=== PATIENT | male | born 1970 | race American Indian/Alaskan Native ===

== ENCOUNTER 2018-06-28 20:39 | Emergency (ER) | payer SELFPAY ==
--- NOTE | 2018-06-28 21:27 | Emergency Department Report ---
Blank Doc - Documentation Documentation: pt states he slipped and fell at work c/o right ankle pain and right heel pain never injured before no PMHx no daily meds no allergies to meds non smoker occ drinker no drug use
--- NOTE | 2018-06-28 22:27 | XRay Report ---
PROCEDURE: XR ANKLE 3+V RT TECHNIQUE: Right ankle radiographs, AP, lateral, and oblique views. HISTORY: slip and fall, right ankle pain COMPARISONS: None . FINDINGS: Fracture (s) and/or Dislocation(s): None . Alignment: Normal . Joint space(s): Normal . Soft tissues: Normal . Bone mineralization: Normal . Foreign bodies: None . Calcaneal spurring: None . IMPRESSION: Normal Examination . This document is electronically signed by Jose Antonio Yung MD., Jun 28 2018 10:25:30 PM ET
--- NOTE | 2018-06-28 22:28 | XRay Report ---
PROCEDURE: XR FOOT 3+V RT TECHNIQUE: Right foot radiographs, AP, lateral, and oblique views. HISTORY: slip and fall, right heel pain COMPARISONS: None . FINDINGS: Fracture (s) and/or Dislocation(s): None . Alignment: Normal . Joint space(s): Normal . Soft tissues: Normal . Bone mineralization: Normal . Foreign bodies: None . Calcaneal spurring: None . IMPRESSION: Normal Examination . This document is electronically signed by Jose Antonio Yung MD., Jun 28 2018 10:26:07 PM ET
[2018-06-29] MEDS ORDERED: IBUPROFEN PO ONE (00:02)
--- NOTE | 2018-06-29 00:07 | Emergency Department Report ---
ED Extremity Problem HPI - General Chief complaint: Extremity Injury, Lower Stated complaint: RIGHT LEG AND ANKLE PAIN Time Seen by Provider: 06/28/18 21:25 Source: patient Mode of arrival: Ambulatory Limitations: No Limitations - History of Present Illness Initial comments: Patient is a 48-year-old [place] male who suffered a slip and fall earlier tod ay while at work. 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 The patient slipped and fell. Patient has pain in the right foot and right ankle mostly at the lateral malleolus where he has swelling. Patient states pain is 7 out of 10 in severity and is aching and throbbing. Patient states he believes he may have hit his head but he denies any loss consciousness and says he has no headache at this time. Consistency: constant Improves with: immobilization Worsens with: weight bearing, walking - Related Data Previous Rx's Medication Instructions Recorded Last Taken Type Ketorolac [Toradol] 10 mg PO Q6H PRN #12 tablet 06/29/18 Unknown Rx traMADol [Ultram] 50 mg PO Q6HR PRN #12 tablet 06/29/18 Unknown Rx Allergies Allergy/AdvReac Type Severity Reaction Status Date / Time No Known Allergies Allergy Unverified 06/28/18 20:49 ED Review of Systems ROS: Stated complaint: RIGHT LEG AND ANKLE PAIN Other details as noted in HPI Comment: All other systems reviewed and negative ED Past Medical Hx - Past Medical History Previous Medical History?: No - Surgical History Past Surgical History?: No - Social History Smoking Status: Former Smoker Substance Use Type: Alcohol - Medications Home Medications: Home Medications Medication Instructions Recorded Confirmed Last Taken Type Ketorolac [Toradol] 10 mg PO Q6H PRN #12 tablet 06/29/18 Unknown Rx traMADol [Ultram] 50 mg PO Q6HR PRN #12 tablet 06/29/18 Unknown Rx ED Physical Exam - General Limitations: No Limitations General appearance: alert, in no apparent distress - Head Head exam: Present: atraumatic, normocephalic - Eye Eye exam: Present: normal appearance - ENT ENT exam: Present: mucous membranes moist - Neck Neck exam: Present: normal inspection - Respiratory Respiratory exam: Absent: normal lung sounds bilaterally, respiratory distress - GI/Abdominal GI/Abdominal exam: Present: soft. Absent: distended - Rectal Rectal exam: Present: deferred - Extremities Exam Extremities exam: Present: normal inspection - Expanded Lower Extremity Exam Right Ankle exam: Present: full ROM, tenderness (lateral malleolus), swelling. Absent: normal inspection, laceration, ecchymosis, deformity, crepidus, dislocation, erythema - Back Exam Back exam: Present: normal inspection - Neurological Exam Neurological exam: Present: alert, oriented X3 - Psychiatric Psychiatric exam: Present: normal affect, normal mood - Skin Skin exam: Present: warm, dry, intact, normal color. Absent: rash ED Course Vital Signs 06/28/18 06/28/18 20:46 21:25 Temperature 97.9 F 97.9 F Pulse Rate 95 H 95 H Respiratory 16 16 Rate Blood Pressure 119/82 119/82 O2 Sat by Pulse 97 97 Oximetry ED Medical Decision Making - Radiology Data [facility] [address] [place] [address] XRay Report Signed Patient: NAVI LONG MR#: [id number] : 1970 Acct:[id number] Age/Sex: 48 / M ADM Date: 06/28/18 Loc: ED Attending Dr: Ordering Physician: CARMEN ULRICH Date of Service: 06/28/18 Procedure(s): XR ankle 3+V RT Accession Number(s): [id number] cc: CARMEN ULRICH Fluoro Time In Minutes: PROCEDURE: XR ANKLE 3+V RT TECHNIQUE: Right ankle radiographs, AP, lateral, and oblique views. HISTORY: slip and fall, right ankle pain COMPARISONS: None . FINDINGS: Fracture (s) and/or Dislocation(s): None . Alignment: Normal . Joint space(s): Normal . Soft tissues: Normal . Bone mineralization: Normal . Foreign bodies: None . Calcaneal spurring: None . IMPRESSION: Normal Examination . This document is electronically signed by Jose Antonio Yung MD., Jun 28 2018 10:25:30 PM ET Transcribed By: [facility] [place] Dictated By: JOSE ANTONIO YUNG Electronically Authenticated By: JOSE ANTONIO YUNG Signed Date/Time: 06/28/18 1647 - Medical Decision Making Patient suffered a fall while at work and he has pain and swelling to the lateral malleolus of his right lower extremity. Patient placed in an air cast and the patient will be discharged home with follow-up with orthopedics as needed. Patient given rice instructions. Critical care attestation.: If time is entered above; I have spent that time in minutes in the direct care of this critically ill patient, excluding procedure time. ED Disposition Clinical Impression: Ankle sprain Qualifiers: Encounter type: initial encounter Involved ligament of ankle: unspecified ligament Laterality: right Qualified Code(s): S93.401A - Sprain of unspecified ligament of right ankle, initial encounter Disposition: TO HOME OR SELFCARE Is pt being admited?: No Does the pt Need Aspirin: No Condition: Stable Instructions: Ankle Sprain (ED), Ankle Stirrup Splint (ED), RICE Therapy (ED) Referrals: REX FERRO MD [Staff Physician] - 3-5 Days Time of Disposition: 00:06
[2018-06-29 01:09] VITALS: BP 121/84
== END 2018-06-29 00:50 | disposition home or self-care (01) ==
LOC: ED 20:39
DX: S93.401A Sprain of unspecified ligament of right ankle, initial encounter (principal); Z87.891 Personal history of nicotine dependence; W01.0XXA Fall on same level from slipping, tripping and stumbling without subsequent striking against object, initial encounter; Y93.01 Activity, walking, marching and hiking; Y92.511 Restaurant or cafe as the place of occurrence of the external cause; Y99.0 Civilian activity done for income or pay

== ENCOUNTER 2020-04-02 01:47 | Emergency (ER) | payer SELFPAY ==
[2020-04-02] MEDS ORDERED: IPRATROPIUM/ALBUTEROL SULFATE 3 ML AMPUL.NEB IH ONE (03:09)
[2020-04-02] MEDS ORDERED: ALBUTEROL 2.5 MG/3 ML NEBU IH ONE (03:09)
[2020-04-02 03:26] VITALS: BP 148/84
--- NOTE | 2020-04-02 03:42 | Emergency Department Report ---
- General Chief Complaint: Upper Respiratory Infection Stated Complaint: SOB Source: patient Mode of arrival: Ambulatory Limitations: No Limitations - History of Present Illness Initial Comments: Patient is a 50-year-old -Chinese male with no past medical history of except morbid obesity who presents to the ED with complaint of acute onset persistent nasal and sinus congestion, frontal sinus pressure, sore throat, persistent dry cough with wheezing and shortness of breath for the last 3 weeks. Patient states that he has been taking [id number] medications with no relief. Patient states that about 2 hours prior to arrival to the ED via EMS, his cough and wheezing got worse and decided come to the ED for evaluation. Patient states that he was treated in route to the ED with Decadron and albuterol inhaler. Patient denies dizziness, syncope, fever, chills, chest pain, shortness of breath, abdominal pain, nausea, vomiting, sore throat, back pain, neck pain, change in vision or palpitations. MD Complaint: cough, sore throat, rhinorrhea, nasal congestion, sinus pain -: Sudden, week(s) (3) Severity: severe Severity scale (0 -10): 7 Quality: sharp, aching Consistency: constant Improves With: nothing Worsens With: nothing Associated Symptoms: denies other symptoms, myalgias, headache, rhinorrhea, nasal congestion, sore throat, cough. denies: fever, chills, diaphoresis, stiff neck, chest pain, shortness of breath, abdominal pain, nausea, vomiting, diarrhea, dysuria, rash, confusion, right sweats, weight loss, epistaxis, hoarseness, ear pain Treatments Prior to Arrival: none - Related Data Previous Rx's Medication Instructions Recorded Last Taken Type Ketorolac [Toradol] 10 mg PO Q6H PRN #12 tablet 06/29/18 Unknown Rx traMADoL [Ultram] 50 mg PO Q6HR PRN #12 tablet 06/29/18 Unknown Rx Albuterol Sulfate [Proventil Hfa] 1 - 2 puff IH Q6H PRN #1 hfa.aer.ad 04/02/20 Unknown Rx Benzonatate [Tessalon Perles] 100 mg PO Q8HR #30 capsule 04/02/20 Unknown Rx Cetirizine HCl [Zyrtec 10mg tab] 10 mg PO DAILY #30 tablet 04/02/20 Unknown Rx Doxycycline Hyclate 100 mg PO Q12H #20 tablet. 04/02/20 Unknown Rx Ibuprofen [Motrin] 800 mg PO Q8HR PRN #30 tablet 04/02/20 Unknown Rx methylPREDNISolone [Medrol 4MG 4 mg PO DAILY #21 tab.ds.pk 04/02/20 Unknown Rx DOSEPAK (21 tabs)] Allergies Allergy/AdvReac Type Severity Reaction Status Date / Time No Known Allergies Allergy Unverified 06/28/18 20:49 ED Review of Systems ROS: Stated complaint: SOB Other details as noted in HPI Constitutional: denies: chills, fever Eyes: denies: eye pain, eye discharge, vision change ENT: throat pain, congestion. denies: ear pain Respiratory: cough, shortness of breath, wheezing Cardiovascular: denies: chest pain, palpitations, dyspnea on exertion Endocrine: no symptoms reported Gastrointestinal: denies: abdominal pain, nausea, vomiting, diarrhea, hematemesis, melena Genitourinary: denies: urgency, dysuria Musculoskeletal: denies: back pain, joint swelling, arthralgia Skin: denies: rash, lesions Neurological: headache. denies: weakness, paresthesias Psychiatric: denies: anxiety, depression Hematological/Lymphatic: denies: easy bleeding, easy bruising ED Past Medical Hx - Past Medical History Previous Medical History?: Yes Hx Hypertension: Yes - Surgical History Past Surgical History?: No - Social History Smoking Status: Never Smoker Substance Use Type: None - Medications Home Medications: Home Medications Medication Instructions Recorded Confirmed Last Taken Type Ketorolac [Toradol] 10 mg PO Q6H PRN #12 tablet 06/29/18 Unknown Rx traMADoL [Ultram] 50 mg PO Q6HR PRN #12 tablet 06/29/18 Unknown Rx Albuterol Sulfate [Proventil Hfa] 1 - 2 puff IH Q6H PRN #1 hfa.aer.ad 04/02/20 Unknown Rx Benzonatate [Tessalon Perles] 100 mg PO Q8HR #30 capsule 04/02/20 Unknown Rx Cetirizine HCl [Zyrtec 10mg tab] 10 mg PO DAILY #30 tablet 04/02/20 Unknown Rx Doxycycline Hyclate 100 mg PO Q12H #20 tablet. 04/02/20 Unknown Rx Ibuprofen [Motrin] 800 mg PO Q8HR PRN #30 tablet 04/02/20 Unknown Rx methylPREDNISolone [Medrol 4MG 4 mg PO DAILY #21 tab.ds.pk 04/02/20 Unknown Rx DOSEPAK (21 tabs)] ED Physical Exam - General Limitations: No Limitations General appearance: alert, in no apparent distress - Head Head exam: Present: atraumatic, normocephalic, normal inspection - Eye Eye exam: Present: normal appearance, PERRL, EOMI Pupils: Present: normal accommodation - ENT ENT exam: Present: mucous membranes moist, TM's normal bilaterally, normal external ear exam, other (Grossly congested nasal passages; erythematous oropharynx with mild tonsillar swelling, no peritonsillar abscess and uvula is midline) - Neck Neck exam: Present: normal inspection, full ROM, lymphadenopathy (Anterior cervical lymphadenopathy) - Respiratory Respiratory exam: Present: wheezes (Mildly diffuse coarse wheezes throughout). Absent: normal lung sounds bilaterally, respiratory distress, rales, rhonchi, chest wall tenderness, accessory muscle use, decreased breath sounds, prolonged expiratory - Cardiovascular Cardiovascular Exam: Present: regular rate, normal rhythm, normal heart sounds. Absent: systolic murmur, diastolic murmur, rubs, gallop - GI/Abdominal GI/Abdominal exam: Present: soft, normal bowel sounds. Absent: tenderness, guarding, rebound, hyperactive bowel sounds, hypoactive bowel sounds, organomegaly - Extremities Exam Extremities exam: Present: normal inspection, full ROM, normal capillary refill - Back Exam Back exam: Present: normal inspection, full ROM. Absent: tenderness, CVA tenderness (R), CVA tenderness (L), muscle spasm, paraspinal tenderness, vertebral tenderness - Neurological Exam Neurological exam: Present: alert, oriented X3, CN II-XII intact, normal gait, r eflexes normal - Psychiatric Psychiatric exam: Present: normal affect, normal mood - Skin Skin exam: Present: warm, dry, intact, normal color ED Course Vital Signs 04/02/20 04/02/20 03:00 03:26 Temperature 98.5 F Pulse Rate 84 Respiratory 20 Rate Blood Pressure 148/84 O2 Sat by Pulse 94 Oximetry ED Medical Decision Making - Radiology Data Radiology results: image reviewed Chest x-ray shows no acute cardiopulmonary abnormalities or pneumonitis - Medical Decision Making This is a 50-year-old -Chinese male with no past medical history of except morbid obesity who presents to the ED with complaint of acute onset persistent nasal and sinus congestion, frontal sinus pressure, sore throat, persistent dry cough with wheezing and shortness of breath for the last 3 weeks. Patient states that he has been taking [id number] medications with no relief. Patient states that about 2 hours prior to arrival to the ED via EMS, his cough and wheezing got worse and decided come to the ED for evaluation. Patient states that he was treated in route to the ED with Decadron and albuterol inhaler. In the ED, patient is alert and oriented x3 and is not in distress. Patient was treated in the ED with albuterol nebulizer and chest x- ray shows no acute cardiopulmonary abnormalities or pneumonitis. Patient had received Decadron on his way to the ED via EMS. Patient was advised return to the ED immediately if symptoms get worse. Patient was otherwise advised to follow-up with his primary care physician in 5 to 7 days for reevaluation. . - Differential Diagnosis Bronchitis; URI; pneumonia; COVID-19; pharyngitis Critical care attestation.: If time is entered above; I have spent that time in minutes in the direct care of this critically ill patient, excluding procedure time. ED Disposition Clinical Impression: Acute upper respiratory infection, Acute bacterial pharyngitis, Acute bacterial bronchitis Disposition: DC-01 TO HOME OR SELFCARE Is pt being admited?: No Does the pt Need Aspirin: No Condition: Stable Instructions: Acute Bronchitis (ED), Upper Respiratory Infection, Adult, [id number]-[id number], Acute Bronchitis, Adult, [id number], Sore Throat, [id number] Additional Instructions: Your symptoms are due to acute upper respiratory infection Prescriptions: Doxycycline Hyclate 100 mg PO Q12H #20 tablet. methylPREDNISolone [Medrol 4MG DOSEPAK (21 tabs)] 4 mg PO DAILY #21 tab.ds.pk Ibuprofen [Motrin] 800 mg PO Q8HR PRN #30 tablet PRN Reason: Pain , Severe (7-10) Albuterol Sulfate [Proventil Hfa] 1 - 2 puff IH Q6H PRN #1 hfa.aer.ad PRN Reason: Wheezing Benzonatate [Tessalon Perles] 100 mg PO Q8HR #30 capsule Cetirizine HCl [Zyrtec 10mg tab] 10 mg PO DAILY #30 tablet Referrals: [facility] [Provider Group] - 7-10 days Time of Disposition: 03:42 Print Language: PARAGUAYAN
--- NOTE | 2020-04-02 03:51 | XRay Report ---
XR chest routine 2V INDICATION / CLINICAL INFORMATION: dyspnea, cough. COMPARISON: None available. FINDINGS: SUPPORT DEVICES: None. HEART /PULMONARY VASCULATURE: No significant abnormality. LUNGS / PLEURA: No significant pulmonary or pleural abnormality. No pneumothorax. ADDITIONAL FINDINGS: No significant additional findings. IMPRESSION: 1. No acute findings. Signer Name: Irving Horvath MD Signed: 04/02/2020 3:47 AM Workstation Name: [id number]
== END 2020-04-02 06:54 | disposition home or self-care (01) ==
LOC: ED 01:47
DX: J02.8 Acute pharyngitis due to other specified organisms (principal); B96.89 Other specified bacterial agents as the cause of diseases classified elsewhere; J40 Bronchitis, not specified as acute or chronic; I10 Essential (primary) hypertension; Z79.899 Other long term (current) drug therapy
CPT/HCPCS: 71046; 94644; 99283